=== PATIENT | female | born 1965 | race Caucasian/White ===

== ENCOUNTER 2017-05-20 18:28 | Day surgery (SDC) | payer BC ==
--- NOTE | ~2017-05-20 | OR ---
PATIENT'S NAME: MARCIA STOREY [facility] AGE: 51 Y [address] ROOM: [place] [address] LOCATION: GPOC ADMIT DATE: 05/20/2017 OR/Procedure Report DISCHARGE DATE: 05/20/2017 FAMILY PHYSICIAN: Isaac Le MD ATTENDING PHYSICIAN: Moses Mercer SURGEON: Moses Mercer DO [employer] COORDINATOR: Staff. DATE OF PROCEDURE: 05/20/2017 PREOPERATIVE DIAGNOSIS: Right long finger open distal phalanx fracture due to a foot miter operator injury. POSTOPERATIVE DIAGNOSIS: Right long finger open distal phalanx fracture due to a foot miter operator injury (segmental distal phalanx fracture with tuft and intra- articular base injuries and a nail bed injury). PROCEDURES PERFORMED: 1. Right long finger debridement to bone. 2. Right long finger open treatment of segmental distal phalanx fracture. 3. Right long finger nail bed repair. ANESTHESIA: Digital blockade and general. ESTIMATED BLOOD LOSS: Less than 10 mL. TOURNIQUET TIME: Less than 1 hour at 250 mmHg. COMPLICATION: None. DISPOSITION: Stable to recovery room. JUSTIFICATION FOR PROCEDURE: Marcia Storey is a 51-year-old female with a history of a foot miter operator injury to her right long finger when she reached under the deck and her long finger was struck by the spinning blade. She was seen elsewhere and sent to my office for evaluation. She had x-ray and physical exam evidence for an unstable open fracture and was counseled as to the risks versus benefits of surgery, necessary afterward care and gave informed consent to proceed with right long finger open treatment of distal phalanx fracture and any indicated procedures. PROCEDURE IN DETAIL: The patient was properly identified, both verbally and by name tag. She was taken to the operating suite and placed in the operating table in the supine position. The anesthesiologist administered a general anesthetic and intubated her and then placed a digital blockade on the right long finger. PATIENT'S NAME: MARCIA STOREY [facility] [place] AGE: 51 Y [address] ROOM: [place] [address] LOCATION: GPOC ADMIT DATE: 05/20/2017 OR/Procedure Report DISCHARGE DATE: 05/20/2017 FAMILY PHYSICIAN: Isaac Le MD ATTENDING PHYSICIAN: Moses Mercer Once adequate anesthesia was obtained, the right upper extremity was prepped and draped in the usual sterile fashion. The extremity was exsanguinated with an Esmarch bandage and tourniquet inflated to level of the arm to 250 mmHg. The patient's traumatic wound was an open laceration roughly the midaxial line extending up into the periungual tissues on the ulnar border of the right long finger distal phalanx. The nail was unstable and partially avulsed. The nail itself was partially split distally, but the majority of the nail was in one piece. The nail was from the underlying germinal and sterile matrix in an atraumatic fashion with a blunt Linwood and was removed. It was debrided of soft tissue and nail emirati and was then placed in a Betadine bath for disinfecting to be used later as a biologic splint. The gloves and field were changed and the finger was re-washed with Hibiclens in a sterile fashion. The wound was copiously irrigated with saline. The wound itself was then debrided from superficial to deep under loupe magnification. The wound had surprisingly minimal if any gross contamination in it. There was a small fragment of fractured bone, which was well adherent with investing soft tissues and appeared to be viable. This was returned to its anatomic position near the tuft fracture. The tuft fracture was debrided and it too showed no gross contamination. There was a secondary fracture involving about 30% of the joint surface and the collateral ligament at the radial base of the distal phalanx. This was also not contaminated. The wound was copiously irrigated with saline. The fractures were reduced anatomically. The reduction was confirmed fluoroscopically. The fractures were then reduced with percutaneous placement of a single 0.045 inch Cinthia wire placed through the tip of the finger through the tuft fragment down the intact shaft of the distal phalanx and then advancing across the distal interphalangeal joint into the middle phalanx. It was advanced to the base of the middle phalanx when fluoroscopic pictures showed the trajectory was acceptable. The fractures were then re- evaluated. Both the tuft fracture and the unstable base fracture were anatomically reduced. Intraoperative films were taken to show the instability of the base fracture and tuft fracture followed by the well aligned and stabilized post pin fixation views. The wound was copiously irrigated again. Tourniquet was let down after less than 1 hour. Good capillary refill was noted distally. There was no arterial bleeding noted. Hemostasis was obtained with direct pressure only. The finger tip was viable with good capillary refill distally. The patient's fingernail was taken out of the Betadine bath and was irrigated clean and then re-debrided. It was irrigated a final time and then attention was turned to the nail bed injury. The nail bed injury was fixed with 6-0 chromic suture in interrupted fashion and then the biologic nail was placed over the nail bed as a physiologic splint to cover the zone of injury. The finger was placed in a sterile bulky bundle dressing after once again confirming the digit was viable all way to the tip. A pin cap was placed over the pin, which was cut off at an acceptable level distal to the skin. A sterile bulky bundle dressing and splint was applied. PATIENT'S NAME: MARCIA STOREY [facility] [place] AGE: 51 Y [address] ROOM: [place] [address] LOCATION: GPOC ADMIT DATE: 05/20/2017 OR/Procedure Report DISCHARGE DATE: 05/20/2017 FAMILY PHYSICIAN: Isaac Le MD ATTENDING PHYSICIAN: Moses Mercer The patient was aroused from general anesthesia, extubated by the anesthesiologist, and taken to the recovery room in good condition. Immediate postoperative examination in the recovery room showed good capillary refill distally in the visible digits. The operative digit bandages showed no bleed through. Motor function was grossly intact throughout with the exception of the pain distal phalanx. Sensory function was intact in the nonoperative digits. The digital blockade was still in effect on the operative digit. MOSES MERCER DO NTM/neshal /[id number] d: 05/21/17222 t: 05/27/171952, OPERATIVE SUMMARY
== END 2017-05-20 21:52 | disposition disaster alternative care site (69) ==
LOC: GPOC 18:28 → GSDC 18:28 → GPOC 21:52
PROC: 0PST34Z Reposition Right Finger Phalanx with Internal Fixation Device, Percutaneous Approach (ICD-10-PCS; principal; 2017-05-20)
PROC: 0HQQXZZ Repair Finger Nail, External Approach (ICD-10-PCS; 2017-05-20)
DX: S62.632B Displaced fracture of distal phalanx of right middle finger, initial encounter for open fracture (principal)
CPT/HCPCS: J0690; J7120